=== PATIENT | male | born 1985 | race Two or more races ===

== ENCOUNTER 2019-05-31 13:16 | Emergency (ER) | payer OTHER ==
[~2019-05-31] VITALS: Ht 177.8 cm; Wt 94.3 kg
== END 2019-05-31 17:28 | disposition home or self-care (01) ==
LOC: ER 13:16
DX: S61.220A Laceration with foreign body of right index finger without damage to nail, initial encounter (principal); W26.8XXA Contact with other sharp object(s), not elsewhere classified, initial encounter; Y93.89 Activity, other specified; Y92.89 Other specified places as the place of occurrence of the external cause; Y99.8 Other external cause status
CPT/HCPCS: 12001; G0168

== ENCOUNTER 2022-02-19 13:59 | Outpatient (CLI) | payer OTHER | END 2022-02-19 14:00 | disposition home or self-care (01) | LOC: LAB 13:59 | PROVIDERS: ATTEND Obstetrics & Gynecology | DX: Z20.818 Contact with and (suspected) exposure to other bacterial communicable diseases (principal); Z20.828 Contact with and (suspected) exposure to other viral communicable diseases ==